=== PATIENT | female | born 1940 | race Caucasian/White ===

== ENCOUNTER → 2022-09-29 | Outpatient (CLI) | payer MEDICARE ==
--- NOTE | 2022-10-02 13:34 | MM ---
Reason for Exam: Screening (asymptomatic). Last mammogram was performed 3 year(s) and 2 month(s) ago. Patient History: Menarche at age 14. First Full-Term at age 22. Postmenopausal. Risk Values: Krysten 5 year model risk: 1.5%. NCI Lifetime model risk: 2.3%. Prior Study Comparison: 12/31/2008 Bilateral Screening Mammogram, [facility]. 09/22/2010 Bilateral Screening Mammogram, [facility]. 09/29/2010 Left Diagnostic Mammogram, [facility]. 10/14/2017 Bilateral MG screening mammo w CAD - 2, [facility]. 04/18/2018 Left MG diagnostic mammo LT w CAD - 2, [facility]. 07/04/2019 Bilateral MG 3D screening mammo w/cad, [facility]. Tissue Density: There are scattered fibroglandular densities. Findings: Analyzed By CAD. Chronic nodularity is present upper posterior breast bilaterally No suspicious groups of microcalcifications, spiculated or lobular masses, architectural distortion or other secondary signs of malignancy are mammographically apparent. Overall Assessment: Benign, BI-RAD 2 Management: Screening Mammogram of both breasts in 1 year. A negative mammogram report should not preclude additional follow up of suspicious palpable abnormalities. Patient should continue monthly self breast exam. A clinical breast exam by your physician is recommended on an annual basis and results should be correlated with mammographic findings. Electronically signed and approved by: Ton Schroeder D.O. Radiologis
== END | disposition home or self-care (01) ==
LOC: RADMAMWWP 12:05
PROVIDERS: ATTEND Internal Medicine Geriatric Medicine
DX: Z12.31 Encounter for screening mammogram for malignant neoplasm of breast (principal); Z78.0 Asymptomatic menopausal state
CPT/HCPCS: 77063; 77067

== ENCOUNTER 2022-11-11 11:12 | Day surgery (SDC) | payer MEDICARE ==
[2022-11-06 12:26] VITALS: BMI 21.1
[~2022-11-11 11:12] MED LIST: LACTATED RINGERS 1,000 ML IV SCH; LIDOCAINE 1% (10MG/ML) FOR IV START INTRADERMA PRN
[2022-11-11] MEDS ORDERED: LACTATED RINGERS 1,000 ML IV ONE (11:29)
[2022-11-11 11:46] VITALS: RESP 16; TEMP 97.4
[2022-11-11] MEDS ORDERED: PROPOFOL 10 MG/ML 20 ML VIAL IV ONE (12:11)
[2022-11-11 12:56] VITALS: BP 113/60; PULSE 83
[2022-11-11 14:09] LABS: Anisocytosis Slight; HCT 31.6 % (34.0-46.0); HGB 10.2 gm/dL (11.4-16.0); MCH 30.5 pg (25.0-35.0); MCHC 32.4 g/dL (31.0-37.0); MCV 94.2 fL (80.0-100.0); Mean Platelet Volume 9.9; Platelet Count 177 k/uL (150-450); RBC 3.35 m/uL (3.80-5.40); RDW 17.8 % (11.5-15.5); Reticulocyte % 3.1 % (0.5-2.0)
[2022-11-11 14:41] LABS: Band Neutrophils % 11 %; Metamyelocytes % 5 %; Myelocytes % 8 %; Neutrophils % (M) 34 %; Promyelocytes % 3 %
[2022-11-11 14:42] LABS: Blast Cells # (M) 0.16 k/uL (0); Nucleated Red Blood Cells 4 /100 WBC (0-0); Total Cells Counted 200
[2022-11-11 14:43] LABS: Basophils # (M) 0.32 k/uL (0-0.2); Eosinophils # (M) 0.47 k/uL (0-0.7); Lymphocytes # (M) 4.42 k/uL (1.0-4.8); Metamyelocytes # (M) 0.79 k/uL (0); Monocytes # (M) 1.26 k/uL (0-1.0); Myelocytes # (M) 1.26 k/uL (0); Polychromasia Present; Promyelocytes # (M) 0.47 k/uL (0); WBC 15.8 k/uL (3.8-10.6)
--- NOTE | 2022-11-11 19:13 | OP ---
OPERATIVE REPORT PROCEDURE PERFORMED: Bone marrow aspiration and biopsy. INDICATIONS: Anemia and persistent monocytosis. DESCRIPTION OF PROCEDURE: After obtaining consent from the patient, the procedure was performed in the endoscopy suite under general anesthesia performed by the Anesthesia Team. The patient was put in the left lateral decubitus position. The right posterior superior iliac crest was localized. Skin was cleansed with ChloraPrep. All sterile procedures were followed. 2 mL of 2% Xylocaine was used for local anesthetic. Monoject needle was inserted. About 10 mL aspirate and 2 cm core biopsy were obtained without any difficulties. Pressure was applied afterwards. There was negligible blood loss. The patient tolerated the procedure very well without any immediate complications. MMODL / IJN: [id number] /
== END 2022-11-11 13:10 | disposition home or self-care (01) ==
LOC: OR 11:12
PROVIDERS: ATTEND Internal Medicine Hematology & Oncology
DX: D64.9 Anemia, unspecified (principal); D72.821 Monocytosis (symptomatic); C04.8 Malignant neoplasm of overlapping sites of floor of mouth; D72.829 Elevated white blood cell count, unspecified; Z87.891 Personal history of nicotine dependence; I71.20 Thoracic aortic aneurysm, without rupture, unspecified; R91.1 Solitary pulmonary nodule; E78.5 Hyperlipidemia, unspecified; K21.9 Gastro-esophageal reflux disease without esophagitis; Z79.899 Other long term (current) drug therapy
CPT/HCPCS: 85025; 85045; 38222; J2704

== ENCOUNTER → 2023-10-18 | Outpatient (CLI) | payer MEDICARE ==
--- NOTE | 2023-10-18 18:51 | BD ---
EXAMINATION TYPE: Axial Bone Density DATE OF EXAM: 10/18/2023 CLINICAL HISTORY: 83 years old Female. ICD-10 CODE: M81.0 osteoporosis Height: 63 Weight: 119 FRAX RISK QUESTIONS: Family History (Parent hip fracture): no History of Fracture in Adulthood: no Secondary Osteoporosis: yes 3. Menopause before 45: yes RISK FACTORS HISTORY OF: Family History of Osteoporosis: no Active: yes Diet low in dairy products/other sources of calcium: no Postmenopausal woman: yes MEDICATIONS: Additional Medications: yes cholesterol, hbp Additional History: yes oral cancer no treatments EXAM MEASUREMENTS: Bone mineral densitometry was performed using the Topmission System. Bone mineral density as measured about the Lumbar spine is: ----- L1-L4(G/cm2): 1.546 T Score Values are as follows: ----- L1: 1.7 ----- L2: 1.9 ----- L3: 3.4 ----- L4: 4.4 ----- L1-L4: 3.0 Z Score Values are as follows: ----- L1: 4.0 ----- L2: 4.1 ----- L3: 5.6 ----- L4: 6.6 ----- L1-L4: 5.3 Bone mineral density has: Increased 41.1% since study of: 10/24/2001 Bone mineral density about the R hip (g/cm2): 0.718 Bone mineral density about the L hip (g/cm2): 0.781 T Score values are as follows: -----R Neck: -1.7 -----L Neck: -2.3 -----R Total: -2.3 -----L Total: -1.8 Z Score values are as follows: -----R Neck: 0.7 -----L Neck: 0.2 -----R Total: 0.1 -----L Total: 0.6 Bone mineral density has: Decreased -10.3% since study of: 10/24/2001 FRAX%s: The graph provided illustrates a 15.3% chance for a major osteoporotic fx and a 5.4% chance f or the hips probability for fx in 10 years time. IMPRESSION: Osteopenia (T Score between -2.5 and -1). There is slightly increased risk of fracture and the patient may be considered for treatment. Re-Screen 2-5 years. NOTE: T-SCORE=SD OF THE YOUNG ADULT MEAN.
--- NOTE | 2023-10-20 08:38 | MM ---
Reason for Exam: Screening (asymptomatic). Last mammogram was performed 1 year(s) and 1 month(s) ago. Patient History: Menarche at age 14. First Full-Term at age 22. Postmenopausal. Risk Values: Krysten 5 year model risk: 1.4%. NCI Lifetime model risk: 2.1%. Prior Study Comparison: 04/18/2018 Left MG diagnostic mammo LT w CAD - 2, [facility]. 07/04/2019 Bilateral MG 3D screening mammo w/cad, [facility]. 09/29/2022 Bilateral MG 3D screening mammo w/cad, [facility]. Tissue Density: There are scattered fibroglandular densities. Findings: Analyzed By CAD. There is no suspicious group of microcalcifications or new suspicious mass in either breast. Overall Assessment: Negative, BI-RAD 1 Management: Screening Mammogram of both breasts in 1 year. . Patient should continue monthly self-breast exams. A clinical breast exam by your physician is recommended on an annual basis. This exam should not preclude additional follow-up of suspicious palpable abnormalities. Note on Krysten scores and lifetime risk: 1. A Krysten score greater than 3% is considered moderate risk. If this is the case, consider specialist referral to assess eligibility for a risk reducing agent. 2. If overall lifetime risk for the development of breast cancer is 20% or higher, the patient may qualify for future screening with alternating mammogram and breast MRI. Electronically signed and approved by: Gabriel Pool M.D. Radiologis
== END | disposition home or self-care (01) ==
LOC: RADMAMWWP 13:22
PROVIDERS: ATTEND Internal Medicine Geriatric Medicine
DX: Z12.31 Encounter for screening mammogram for malignant neoplasm of breast (principal); M81.0 Age-related osteoporosis without current pathological fracture; M85.89 Other specified disorders of bone density and structure, multiple sites; Z78.0 Asymptomatic menopausal state
CPT/HCPCS: 77063; 77067; 77080

== ENCOUNTER → 2024-08-15 | Outpatient (CLI) | payer MEDICARE ==
--- NOTE | 2024-08-17 09:20 | US ---
EXAMINATION TYPE: US liver DATE OF EXAM: 08/15/2024 COMPARISON: NONE CLINICAL INDICATION: Female, 84 years old with history of R94.5 ABN LFT; abnormal LFT's TECHNIQUE: Grayscale and color Doppler imaging of the right upper quadrant was performed. FINDINGS: EXAM MEASUREMENTS: Liver Length: 15.3 cm Gallbladder Wall: 0.1 cm CBD: 0.7 cm Right Kidney: 9.6 x 4.7 x 3.8 cm [employer] NOTES: Pancreas: wnl Liver: slightly heterogeneous Gallbladder: wnl Evidence for sonographic Sánchez's sign: No CBD: wnl Right Kidney: wnl IMPRESSION: Mildly heterogenous liver correlate for hepatocellular disease. No evidence for acute process. [facility], , 08/17/2024 9:18 AM
== END | disposition home or self-care (01) ==
LOC: RADUSWWP 07:29
PROVIDERS: ATTEND Internal Medicine Hematology & Oncology
CPT/HCPCS: 76705

== ENCOUNTER 2024-11-14 06:02 | Day surgery (SDC) | payer MEDICARE ==
[2024-11-10 14:16] VITALS: BMI 20.9
[2024-11-14] MEDS ORDERED: LIDOCAINE 1% (10MG/ML) FOR IV START INTRADERMA PRN (06:31)
[2024-11-14] MEDS ORDERED: LACTATED RINGERS 1,000 ML IV SCH (06:31)
[2024-11-14 06:56] VITALS: RESP 18; TEMP 97.9
[2024-11-14] MEDS: SODIUM CHLORIDE 0.9% 1,000 ML IV ONE (06:56)
[2024-11-14] MEDS ORDERED: PROPOFOL 10 MG/ML 20 ML VIAL IV ONE (06:59)
[2024-11-14 08:02] LABS: Anisocytosis Moderate; HCT 27.6 % (34.0-46.0); HGB 9.4 gm/dL (11.4-16.0); MCH 31.6 pg (25.0-35.0); Macrocytosis Slight; Mean Platelet Volume 8.8; Platelet Count 231 k/uL (150-450); Poikilocytosis Slight; RBC 2.97 m/uL (3.80-5.40); RDW 20.3 % (11.5-15.5); Reticulocyte % 3.6 % (0.5-2.0)
[2024-11-14 08:06] VITALS: BP 134/79; PULSE 75
--- NOTE | 2024-11-14 08:22 | OP ---
OPERATIVE REPORT DATE OF SERVICE : PROCEDURE PERFORMED: Bone marrow biopsy with general and local sedation. DESCRIPTION OF PROCEDURE: After being placed in the left lateral decubitus position, the right iliac crest was palpated. After administration of general sedation, this area was sterilized with three swabs of Betadine and three swabs of alcohol, sterile drape was then placed, a total of 10 mL of 1% lidocaine was applied to the periosteum. A 0.3 cm incision was then made into the skin, a 4-inch Jamshidi needle was then advanced through the periosteum into the bone marrow. Initial attempt to obtain aspirate samples was unsuccessful. Repeat attempt to obtain aspirate sample was unsuccessful, and a 0.3 cm core sample was obtained. A subsequent 0.3 cm incision was made above 0.5 cm inferior to the original incision. Multiple attempts were made to obtain aspirate. Eventually, approximately, 20 mL of aspirate was obtained. Samples will be sent for Morphology, flow cytometry, FISH, and cytogenetics. She tolerated the procedure without any complications and had less than 1 mL of blood loss. She returned to the postoperative area in stable condition. She will follow up on the results in the clinic. MMODL / IJN: [id number] /
[2024-11-14 08:32] LABS: Band Neutrophils % 12 %; Metamyelocytes % 9 %; Myelocytes % 14 %; Neutrophils % (M) 39 %; Promyelocytes % 3 %
[2024-11-14 08:33] LABS: Basophils # (M) 0.43 k/uL (0-0.2); Eosinophils # (M) 2.17 k/uL (0-0.7); Lymphocytes # (M) 4.76 k/uL (1.0-4.8); Myelocytes # (M) 6.06 k/uL (0); Nucleated Red Blood Cells 2 /100 WBC (0-0); Total Cells Counted 200; WBC 43.3 k/uL (3.8-10.6)
[2024-11-14 08:34] LABS: Polychromasia Present
== END 2024-11-14 08:22 | disposition home or self-care (01) ==
LOC: OR 06:02
PROVIDERS: ATTEND Internal Medicine Hematology & Oncology
DX: C04.8 Malignant neoplasm of overlapping sites of floor of mouth (principal); D47.1 Chronic myeloproliferative disease; D72.829 Elevated white blood cell count, unspecified; I71.20 Thoracic aortic aneurysm, without rupture, unspecified; D64.9 Anemia, unspecified; E78.5 Hyperlipidemia, unspecified; K21.9 Gastro-esophageal reflux disease without esophagitis; Z87.891 Personal history of nicotine dependence; Z90.09 Acquired absence of other part of head and neck; Z79.899 Other long term (current) drug therapy
CPT/HCPCS: 85025; 85045; 38222; J2704